=== PATIENT | female | born 1945 | race Caucasian/White ===

== ENCOUNTER 2018-11-04 15:19 | Emergency (ER) | payer MEDICARE, OTHER ==
[~2018-11-04] VITALS: Ht 157.5 cm; Wt 77.1 kg
[~2018-11-04 15:19] MED LIST: ACIDOPHILUS1 EAC4 PO; BACLOFEN10 MG PO; BACLOFEN20 MG PO; COLCHICINE0.6 MG PO; LASIX40 MG PO; LISINOPRIL10 MG PO; LOMOTIL TABLET1 EACH PO; METALAZONE; METFORMIN HCL500 MG PO; NITROFURANTOIN100 MG PO; NORCO 10MG-325MG1 EA PO; NORCO 7.5-3251 EACH PO; NOVOLOG100 UNIT/2 SC; REGLAN10 MG PO; ROBAXIN-750750 MG PO; SINGULAIR10 MG PO; SPIRONOLACTONE25 MG PO; TALADINE150 MG PO; TOPROL XL50 MG PO; ULORIC80 MG PO; ULTRAM 50MG50 MG PO; VITAMIN D3 PO; XANAX0.25 MG PO; Z METHOCARBAMOL; Z.0.ADIPEX-P37.5 MG; Z.0.BENADRYL25 MG PO; Z.0.DEMADEX20 MG; Z.0.LEVEMIR100 UNIT/ SC; Z.0.PREDNISONE5 MG; Z.0.REGLAN10 MG; Z.0.WARFARIN SODIUM2 PO; Z.0.XANAX0.25 MG; Z.0.XYZAL5 MG PO; Z.1.HYDROCODON-ACE1; ZOFRAN ODT4 MG PO; [UNRECOGNIZED DRUG - OTHER] PO
[2018-11-04] MEDS ORDERED: LIDOCAINE 1% W/EPINEPHRINE 20 ML VIAL ONE (17:31)
[2018-11-04] MEDS ORDERED: HYDROCODONE/APAP 7.5MG-325MG 1 EA TAB PO NR (17:45)
--- NOTE | 2018-11-04 18:05 | NUR ---
per md orders wrap wounds with xeroform and gauze and wrap; pt wounds wrapped according to orders
[2018-11-04 18:36] VITALS: BP 161/65
== END 2018-11-04 18:48 | disposition home or self-care (01) ==
LOC: ER 15:19
DX: S81.812A Laceration without foreign body, left lower leg, initial encounter (principal); W22.09XA Striking against other stationary object, initial encounter; Y92.238 Other place in hospital as the place of occurrence of the external cause; E11.9 Type 2 diabetes mellitus without complications; Z95.0 Presence of cardiac pacemaker
CPT/HCPCS: 99283

== ENCOUNTER 2019-01-20 22:00 | Emergency (ER) | payer MEDICARE, OTHER ==
[~2019-01-20] VITALS: Ht 157.5 cm; Wt 77.1 kg
--- NOTE | 2019-01-20 23:22 | Diagnostic Imaging Report ---
Exam: Left knee radiographs-3 views History: Pain, edema. Comparison: None. Findings: Diffuse osteopenia. No evidence of acute fracture or malalignment. Small suprapatellar joint effusion. Moderate medial and patellofemoral compartment predominant tricompartmental degenerative changes. Diffuse atherosclerotic vascular calcifications. Impression: No evidence of acute fracture or malalignment. Small suprapatellar joint effusion. Diffuse osteopenia. Moderate tricompartmental osteoarthritis. Signed by: Dr. Moe Huff MD on 01/20/2019 11:18 PM
[2019-01-21] MEDS ORDERED: TRAMADOL HCL 50 MG TAB PO ONE (00:15)
[2019-01-21 01:30] VITALS: BP 178/84
== END 2019-01-21 01:32 | disposition home or self-care (01) ==
LOC: ER 22:00
DX: M17.12 Unilateral primary osteoarthritis, left knee (principal); E11.9 Type 2 diabetes mellitus without complications; Z95.0 Presence of cardiac pacemaker
CPT/HCPCS: 99283

== ENCOUNTER 2019-01-21 16:53 | Inpatient (IN) | payer MEDICARE, OTHER ==
[~2019-01-21] VITALS: Ht 154.9 cm; Wt 59.0 kg
--- OUTSIDE RECORDS SUMMARY | 2019-01-21 17:04 | XMS REPORT ---
Author Author [facility] Address Unknown Phone Unavailable Care Team Providers Care High Man Name Role Phone Duncan SMALL Unavailable Unavailable Problems This patient has no known problems. Allergies, Adverse Reactions, Alerts This patient has no known allergies or adverse reactions. Medications This patient has no known medications. Results Test Description Test Time Test Comments Text Results Atomic Results Result Comments KNEE LEFT THREE VIEWS 2019-01-20 23:15:00 [facility] [address] [place] [address] Patient Name: CHAPINCITO GALVAN MR #: [id number] : 1945 Age/Sex: 73/F Req #: [id number] [facility] Physician: Ordered by: MARIANO SMALL MD Report #: [id number] Location: ER Room/Bed: Procedure: [id number] DX/KNEE LEFT THREE VIEWS Exam Date: 01/20/19 Exam Time: 2240 REPORT STATUS: Signed Exam: Left knee radiographs-3 views History: Pain, edema. Comparison: None. Findings: Diffuse osteopenia. No evidence of acute fracture or malalignment. Small suprapatellar joint effusion. Moderate medial and patellofemoral compartment predominant tricompartmental degenerative changes. Diffuse atherosclerotic vascular calcifications. Impression: No evidence of acute fracture or malalignment. Small suprapatellar joint effusion. Diffuse osteopenia. Moderate tricompartmental osteoarthritis. Signed by: Dr. Ivanna Sellers MD on 01/20/2019 11:18 PM Dictated By: IVANNA SELLERS MD 17 Transcribed By: IRWIN on 01/20/192317 COPY TO: MARIANO SMALL MD
--- NOTE | 2019-01-21 18:02 | NUR ---
Received patient via wheelchair to room 214. Accompanied by family member. AAOX3 to time, person, place. Respirations even and unlabored. Dressing to left knee clean, dry, and intact. Oriented to room. Instructed to use call light for assistance. Voiced understanding. Side rails upx2, call light within reach. Orders to be reviewed.
[2019-01-21] MEDS ORDERED: HYDROCODONE/APAP 7.5MG-325MG 1 EA TAB PO PRN (18:15)
[2019-01-21 18:29] VITALS: BP 136/61
--- NOTE | 2019-01-21 19:05 | NUR ---
Report given to oncoming nurse. Admission to be completed by oncoming nurse
[2019-01-21 19:13] LABS: BODY FLUID APPEARANCE CLOUDY; BODY FLUID COLOR RED; BODY FLUID TYPE SYNOVIAL
[2019-01-21 19:15] LABS: RBC,BODY FLUID 16409 cells/uL; WBC,BODY FLUID 59425 cells/uL
[2019-01-21 19:30] LABS: BASOPHILS # (AUTO) 0.1 (0.0-0.1); BASOPHILS % 0.2 % (0.0-1.0); EOSINOPHILS # (AUTO) 0.1 (0.0-0.4); EOSINOPHILS % 0.5 % (0.0-6.0); HEMOGLOBIN 12.9 g/dL (12.0-16.0); LYMPHOCYTES # (AUTO) 1.2 (1.0-3.2); LYMPHOCYTES % 5.6 % (18.0-39.1); MEAN CORPUSCULAR HEMOGLOBIN 28.7 pg (28-32); MEAN CORPUSCULAR HGB CONC 32.3 g/dL (31-35); MEAN CORPUSCULAR VOLUME 89.1 fL (81-99); MONOCYTES # (AUTO) 1.6 (0.2-0.8); MONOCYTES % 7.5 % (4.4-11.3); NEUTROPHILS # (AUTO) 17.7 (2.1-6.9); NEUTROPHILS % 85.4 % (38.7-80.0); PLATELET COUNT 335 x10e3/uL (140-360); RED BLOOD COUNT 4.49 x10e6/uL (3.6-5.1); RED CELL DISTRIBUTION WIDTH 13.2 % (11.7-14.4)
[2019-01-21 19:45] VITALS: BP 136/63
--- NOTE | 2019-01-21 19:45 | NUR ---
Patient received sitting up in bed. AAO x 4. Family at bedside. Admission history obtained. Initial physical assessment conducted. Patient had complaints of pain (4/10) to left knee. Will be given medication per eMar. Dressing to BLE clean, dry and intact. Patient oriented to room, call light, visiting hours and plan of care. Safety measures implemented. Patient instructed to call for assistance when needed. Call light within reach.
[2019-01-21 19:50] LABS: ALBUMIN 2.6 g/dL (3.5-5.0); ALBUMIN/GLOBULIN RATIO 0.6 (0.8-2.0); ANION GAP 17.7 mmol/L (8-16); CALCIUM 9.5 mg/dL (8.4-10.2); CREATININE, SERUM 0.98 mg/dL (0.57-1.11); POTASSIUM 3.7 mmol/L (3.5-5.1)
[2019-01-21 20:00] VITALS: BP 136/63
[2019-01-21 20:10] LABS: ERYTHROCYTE SEDIMENTATION RATE 71 mm/hr (0-20)
[2019-01-21] MEDS ORDERED: DEXTROSE 50% SYRINGE 50 ML IV PRN (20:45)
[2019-01-21 21:00] VITALS: BP 136/63
[2019-01-21] MEDS: INSULIN LISPRO 100 UNIT/1 ML 3ML VIAL SQ SCH (21:00)
[2019-01-21] MEDS: MONTELUKAST SODIUM 10 MG TAB PO SCH (21:15)
[2019-01-21] MEDS: ALPRAZOLAM 0.25 MG TAB PO SCH (21:15)
[2019-01-21] MEDS: VANCOMYCIN 1GM/NS 250 ML 250 ML IV SCH (21:15)
[2019-01-21 21:23] LABS: LYMPHOCYTES,BODY FLUID 7 %; MONO/MACROPHG,BODY FLUID 4 %; NEUTROPHILS,BODY FLUID 89 %
[2019-01-21] MEDS ORDERED: SODIUM CHLORIDE 0.9% 250ML 250 ML ONE (21:44)
[2019-01-21] MEDS: METOPROLOL SUCCINATE 50 MG TAB XL PO SCH (21:58)
[2019-01-21] MEDS ORDERED: ONDANSETRON HCL 4 MG ORAL DISINTEGRATING TAB PO PRN (23:00)
[2019-01-22] VITALS (8 sets, daily range): BP systolic 129–157; BP diastolic 63–72
--- NOTE | 2019-01-22 00:23 | NUR ---
Patient complained of pain to left knee (10/04). Dr. Fernando dugan. New order received for Morphine 2 mg Q4H PRN.
[2019-01-22] MEDS: MORPHINE SULFATE 2 MG/ML SYR 1ML IV PRN ×4 (00:48→16:32)
--- NOTE | 2019-01-22 07:00 | NUR ---
Walking rounds done. Shift report given to oncoming nurse.
--- NOTE | 2019-01-22 07:00 | NUR ---
BEDSIDE SHIFT REPORT RECEIVED FROM THE AUTOGLAZIER RN. EDUCATED PT ABOUT FALL PRECAUTIONS. CALL LIGHT WITH IN EASY REACH. INSTRUCTED PT TO USE CALL LIGHT FOR ALL THE NEEDS. PT VERBALIZED UNDERSTANDING. BED ALARM IS ON. BED IS LOW AND LOCKED. SIDE RAILS X2. PT DENIES NEEDS AT THIS TIME.
[2019-01-22] MEDS: INSULIN LISPRO 100 UNIT/1 ML 3ML VIAL SQ SCH ×4 (08:00→21:00)
[2019-01-22] MEDS: HYDROMORPHONE 1MG/1ML INJ IV PRN ×3 (08:52→20:20)
[2019-01-22] MEDS: DOCUSATE SODIUM 100 MG CAP PO SCH ×2 (08:59→20:25)
[2019-01-22] MEDS: COLCHICINE 0.6 MG TAB PO SCH ×2 (08:59→16:32)
[2019-01-22] MEDS: METFORMIN HCL 500 MG TAB PO SCH ×2 (08:59→16:32)
[2019-01-22] MEDS ORDERED: LEVOCETIRIZINE DIHYDROCHLORIDE 5 MG PO SCH (09:00)
[2019-01-22] MEDS ORDERED: HYDROCODONE/APAP 10MG-325MG TAB PO SCH ×2 (09:00)
[2019-01-22] MEDS: LORATADINE 10 MG TAB PO SCH (09:00)
--- NOTE | 2019-01-22 09:00 | NUR ---
JUSTIN [place] AT BEDSIDE FOR PROCEDURE.
[2019-01-22] MEDS: FEBUXOSTAT 80 MG TAB PO SCH ×2 (09:01→16:32)
[2019-01-22] MEDS: METOPROLOL SUCCINATE 50 MG TAB XL PO SCH (09:23)
[2019-01-22] MEDS: VANCOMYCIN 1GM/NS 250 ML 250 ML IV SCH ×2 (09:23→20:25)
--- NOTE | 2019-01-22 13:21 | Consultation ---
DATE OF CONSULTATION: The patient is in 214, comes in with left knee pain. HISTORY OF PRESENTING ILLNESS: This is a 73-year-old female with history of multiple medical history including diabetes, hypertension, hyperlipidemia, and gout, was in her usual state of health until the patient started to have a bout of knee pain, which is excruciating, got worse progressively, crescendoed, and the patient was seen by Orthopedics. Aspiration was done and was found to have a septic knee and the patient was admitted to the hospital for the same. PAST MEDICAL HISTORY: History of asthma, history of DVTs in the past, history of diabetes mellitus, history of hypertension, history of anxiety, history of allergies, and history of chronic pain. The patient also has a history of pacemaker placement. MEDICATIONS: She takes at home are acetaminophen 10/325 q.6 hours, alprazolam 0.25 mg at nighttime, colchicine 0.6 mg b.i.d., Uloric 80 mg daily, insulin NovoLog sliding scale, levocetirizine 5 mg daily, metformin 500 mg twice a day, metoprolol 50 mg daily, and montelukast 10 mg daily. PAST SURGICAL HISTORY: History of appendectomy, history of hysterectomy, bilateral salpingo-oophorectomy, bladder suspension, history of carpal tunnel release, history of bilateral cataract surgeries, history of cholecystectomy and history of pacemaker placement as mentioned above, history of colon resection, and lithotripsy for uric acid stones. SOCIAL HISTORY: Denies any EtOH. No drug use and no history of smoking at this time. She was a former smoker. FAMILY HISTORY: Positive for autoimmune disease in the family. ALLERGIES: ALLERGIC TO ADHESIVES, SULFA, CEPHALEXIN, CIPRO, AND APPARENTLY CLINDAMYCIN, WHICH WAS RECENT ALLERGY. REVIEW OF SYSTEMS: Negative for chest pain. No shortness of breath. No nausea, vomiting, or diarrhea. No constipation. No rectal bleeding. Positive for left knee pain. Positive for feeling of coldness in the left lower extremities. No diplopia. No blurry vision. No hyperesthesias. No paresthesias. Pain as mentioned above. PHYSICAL EXAMINATION: VITAL SIGNS: Temperature is 99.1, pulse of 94, blood pressure is 129/63, and pulse oximetry of 98%. She is on room air. HEENT: Normocephalic and atraumatic. CVS: S1 and S2 normal. Regular rate and rhythm. Pacemaker is seen on chest wall. ABDOMEN: Nontender and nondistended. EXTREMITIES: Left lower extremities, knee bandaged up, very tender, pain restricted movement. The patient has good pulses in the left lower extremity, however, the patient's leg is very cold. LABORATORY VALUES: Initial white count is 20,000, hemoglobin of 12.9, hematocrit of 40.9, neutrophil count is 85.4, and ESR is 71. Chemistry; sodium of 130, potassium of 3.7, and BUN of 13. ALT and AST normal, and total bilirubin is 1.5. Glucose of 267. MICROBIOLOGY: Gram stain on the wound is pending. The patient's additional examination shows left lower extremity wound, which has been cultured before and has been taken care of by Dr. Kearney. IMAGING STUDIES: None done on this hospitalization visit. ASSESSMENT: Septic knee. The patient is currently started on vancomycin 1 g q.12 hours. We will go ahead and continue with this. A PICC line will be placed. Medications have been restarted including metformin, alprazolam, montelukast, and morphine q.4 hours. I will go ahead and switch this to Dilaudid 1 mg q.6 hours to control the pain. Continue to monitor the patient's sedimentation rate and also white count. IV antibiotics as per ID. A PICC line will be placed. Further recommendation per clinical course. We will continue to monitor the patient. MD HARSHA Cerda/WILFRED /[id number]
--- NOTE | 2019-01-22 14:25 | Diagnostic Imaging Report ---
Examination: Single AP view of the chest. COMPARISON: Portable chest 05/04/2015 INDICATION: PICC line placement IMPRESSION: 1. Lines and Tubes: Interval placement of right-sided PICC line, with distal tip projecting in the mid SVC. Stable left upper chest multilead cardiac device. 2. Lungs are well-inflated. Stable 9 mm calcified granuloma in the right lower lung. Lungs are otherwise clear. No consolidation or effusion. 3. Cardiomediastinal silhouette is normal. Pulmonary vasculature is normal. 4. No acute bony abnormalities. Signed by: Dr. Denton Brown M.D. on 01/22/2019 2:21 PM
--- NOTE | 2019-01-22 15:00 | NUR ---
PAGED RADIOLOGY REGARDING PICC LINE USE. OKAY TO USE PER RADIOLOGY.
--- NOTE | 2019-01-22 17:00 | NUR ---
LAC 20 G IV REMOVED. TIP INTACT. DRESSING APPLIED. PT DENIED FURTHER NEED.S
--- NOTE | 2019-01-22 19:00 | NUR ---
BEDSIDE SHIFT REPORT GIVEN TO THE LIME KILN WORKER RN. PT DENIED FURTHER NEEDS
--- NOTE | 2019-01-22 19:15 | NUR ---
Patient received sitting up in bed. AAO x 4. Patient had no complaints of pain. Respirations even and non-labored. Bed locked and in lowest position . Bed rails x 2. Patient instructed to call for assistance when needed. Call light within reach.
--- NOTE | 2019-01-22 19:27 | NUR ---
Kayden Webster , P.A. for Dr. Capone called to find out how patient's left knee was doing. Nurse spoke to patient who indicated she was feeling much better. Eleanor (P.A.) stated surgical irrigation and debridement previously planned for patient's left knee will be held off for now.
[2019-01-22] MEDS: ALPRAZOLAM 0.25 MG TAB PO SCH (20:25)
[2019-01-22] MEDS: MONTELUKAST SODIUM 10 MG TAB PO SCH (20:25)
[2019-01-23] VITALS (8 sets, daily range): BP systolic 142–162; BP diastolic 65–70
[2019-01-23] MEDS: MORPHINE SULFATE 2 MG/ML SYR 1ML IV PRN ×4 (02:00→20:40)
[2019-01-23] MEDS: HYDROMORPHONE 1MG/1ML INJ IV PRN ×4 (05:31→22:40)
--- NOTE | 2019-01-23 07:00 | NUR ---
Patient resting comfortably. Shift report given to oncoming nurse about patient's status.
[2019-01-23] MEDS: METFORMIN HCL 500 MG TAB PO SCH ×2 (08:00→16:49)
[2019-01-23] MEDS: INSULIN LISPRO 100 UNIT/1 ML 3ML VIAL SQ SCH ×4 (08:00→21:10)
[2019-01-23] MEDS: DOCUSATE SODIUM 100 MG CAP PO SCH ×2 (08:00→21:48)
[2019-01-23] MEDS: LORATADINE 10 MG TAB PO SCH (08:00)
[2019-01-23] MEDS: COLCHICINE 0.6 MG TAB PO SCH ×2 (08:00→16:49)
[2019-01-23] MEDS: FEBUXOSTAT 80 MG TAB PO SCH ×2 (08:00→16:49)
[2019-01-23] MEDS: METOPROLOL SUCCINATE 50 MG TAB XL PO SCH (08:00)
--- NOTE | 2019-01-23 08:55 | Progress Note ---
DATE: SUBJECTIVE: A 73-year-old female, who came in with a septic knee of the left knee. The patient is currently feeling better, has been able to move her lower extremity better and the knee pain is considerably less. The patient has no chest pain. No shortness of breath. Slept well. No overnight symptoms noted. OBJECTIVE: VITAL SIGNS: Temperature is 98.8, T-max of 99.3 at 1644 hours yesterday, respirations 16, blood pressure is 162/70, and pulse oximetry of 95%. HEENT: Normocephalic, atraumatic. Pupils are reactive to light and accommodation. CVS: S1 and S2 normal. Regular rate and rhythm. ABDOMEN: Nontender, nondistended. EXTREMITIES: Left lower extremity, left knee in a bandage. Positive for good pulses. LABORATORY VALUES: White count is come down to 20,000. Glucoses have been running high. MICROBIOLOGY: Wound culture preliminary studies are rare gram-positive cocci in chains. Yesterday, the patient had a catheter placement. ASSESSMENT: 1. Ms. Granger with one septic knee. Continue with vancomycin 1 g q.12 hours. ID consult on board. The patient is also getting hydromorphone for pain control. 2. Diabetes mellitus. Continue with metformin and insulin sliding scale. 3. Hypertension. We will add amlodipine 5 mg to the regimen. Continue with current plan. PICC line in place. Further recommendation per clinical course. We will continue to monitor the patient's leukocytosis. We will monitor the CBC today. MD HARSHA Cerda/WILFRED /[id number]
--- NOTE | 2019-01-23 09:25 | NUR ---
RECEIVED CALL FROM LAB ON VANCOMYCIN TROUGH OF 16.5, REPORTED TO [facility] BEHAVIORAL HEALTH ASSISTANT FOR DEUCE, PER [place] URBINA TO GIVE MORNING DOSE OF VANCOMYCIN
[2019-01-23] MEDS: VANCOMYCIN 1GM/NS 250 ML 250 ML IV SCH ×2 (10:00→21:48)
--- NOTE | 2019-01-23 11:17 | NUR ---
WOUND CARE CONSULT FOR 73 YO FEMALE DIABETIC PATIENT HX OA RT KNEE, SEPTIC JOINT MARILEE 17 ON MODERATE PUP STATUS AND ALTERNATING PRESSURE SURFACE LABS: WBC-20.71,HGB-12.9, WOUND CULTURE AND BILATERAL LE ULTRASOUND DOPPLER PENDING SKIN ASSESSMENT COMPLETE PATIENT PRESENTS WITH LOWER EXTREMITY ULCERATIONS FOLLOWS : RIGHT LOWER LEG 3CMX1.5CMX.2CM RIGHT 5TH MET HEAD 2CMX1.5CM YELLOW SLOUGH COVERING LEFT OUTER LOWER LEG 3.5WBU6ZTN.2CM LEFT INNER LOWER LEG 2.4MKQ6CEP.2CM RECOMMENDATIONS: NURSING TO CONTINUE TO MAINTAIN MODERATE PUP STATUS INSURE FREQUENT TURNING RELATED TO PATIENT PREFERING TO STAY IN ONE POSITION R/T PAIN ASSOCIATED WITH MOVEMENT OF POST SURGICAL LEFT KNEE NURSING TO APPLY DAILY ACCUZYME OINTMENT TO SLOUGH COVERED ULCERATIONS TO RIGHT LOWER LEG AND 5TH MET HEAD ALSO TO LEFT POSTERIOR AND LATERAL LOWER LEG ULCERATIONS Addendum: 01/23/19 at 1128 by Michael Conrad RN Amended: Links added.
[2019-01-23] MEDS ORDERED: SODIUM CHLORIDE 0.9% 250ML 250 ML ONE (13:55)
[2019-01-23 14:43] LABS: BASOPHILS % 0.2 % (0.0-1.0); EOSINOPHILS % 0.1 % (0.0-6.0); HEMATOCRIT 35.3 % (34.2-44.1); HEMOGLOBIN 11.6 g/dL (12.0-16.0); LYMPHOCYTES # (AUTO) 1.5 (1.0-3.2); LYMPHOCYTES % 6.6 % (18.0-39.1); MEAN CORPUSCULAR HEMOGLOBIN 28.9 pg (28-32); MEAN CORPUSCULAR HGB CONC 32.9 g/dL (31-35); MEAN CORPUSCULAR VOLUME 87.8 fL (81-99); MONOCYTES # (AUTO) 1.6 (0.2-0.8); MONOCYTES % 7.2 % (4.4-11.3); NEUTROPHILS # (AUTO) 18.9 (2.1-6.9); PLATELET COUNT 341 x10e3/uL (140-360); RED BLOOD COUNT 4.02 x10e6/uL (3.6-5.1); RED CELL DISTRIBUTION WIDTH 13.2 % (11.7-14.4)
[2019-01-23 15:18] LABS: BAND NEUTROPHILS % (MANUAL) 1 %; LYMPHOCYTES % (MANUAL) 11 % (19-48); MONOCYTES % (MANUAL) 9 % (3.4-9.0); NEUTROPHILS % (MANUAL) 79 % (40-74); PLATELET ESTIMATE ADEQUATE; PLATELET MORPHOLOGY COMMENT NORMAL; RBC MORPHOLOGY COMMENT NORMAL
[2019-01-23] MEDS: MONTELUKAST SODIUM 10 MG TAB PO SCH (21:48)
[2019-01-23] MEDS: ALPRAZOLAM 0.25 MG TAB PO SCH (21:48)
[2019-01-24] VITALS (9 sets, daily range): BP systolic 136–186; BP diastolic 61–83
[2019-01-24] MEDS: MORPHINE SULFATE 2 MG/ML SYR 1ML IV PRN ×4 (04:22→21:33)
--- NOTE | 2019-01-24 07:00 | NUR ---
Walking rounds done. Patient denies pain. Report given to oncoming nurse.
[2019-01-24] MEDS: LORATADINE 10 MG TAB PO SCH (08:00)
[2019-01-24] MEDS: VANCOMYCIN 1GM/NS 250 ML 250 ML IV SCH ×2 (08:00→21:53)
[2019-01-24] MEDS: COLCHICINE 0.6 MG TAB PO SCH ×2 (08:00→16:40)
[2019-01-24] MEDS: METOPROLOL SUCCINATE 50 MG TAB XL PO SCH (08:00)
[2019-01-24] MEDS: METFORMIN HCL 500 MG TAB PO SCH ×2 (08:00→16:40)
[2019-01-24] MEDS: DOCUSATE SODIUM 100 MG CAP PO SCH ×2 (08:00→21:53)
[2019-01-24] MEDS: INSULIN LISPRO 100 UNIT/1 ML 3ML VIAL SQ SCH ×4 (08:00→21:54)
[2019-01-24] MEDS: FEBUXOSTAT 80 MG TAB PO SCH ×2 (08:00→16:40)
[2019-01-24] MEDS: HYDROMORPHONE 1MG/1ML INJ IV PRN ×2 (08:00→13:48)
[2019-01-24 08:41] LABS: ALBUMIN 1.9 g/dL (3.5-5.0); ALBUMIN/GLOBULIN RATIO 0.5 (0.8-2.0); ANION GAP 16.6 mmol/L (8-16); CALCIUM 8.5 mg/dL (8.4-10.2); CREATININE, SERUM 1.01 mg/dL (0.57-1.11); MAGNESIUM 1.2 MG/DL (1.3-2.1); POTASSIUM 4.6 mmol/L (3.5-5.1)
[2019-01-24] MEDS: COLLAGENASE OINTMENT 30 GM TUBE TP SCH (09:00)
[2019-01-24 09:15] LABS: BASOPHILS % 0.1 % (0.0-1.0); EOSINOPHILS % 0.2 % (0.0-6.0); HEMATOCRIT 30.8 % (34.2-44.1); HEMOGLOBIN 10.1 g/dL (12.0-16.0); LYMPHOCYTES # (AUTO) 1.2 (1.0-3.2); LYMPHOCYTES % 7.7 % (18.0-39.1); MEAN CORPUSCULAR HGB CONC 32.8 g/dL (31-35); MEAN CORPUSCULAR VOLUME 88.5 fL (81-99); MONOCYTES # (AUTO) 0.8 (0.2-0.8); MONOCYTES % 5.4 % (4.4-11.3); NEUTROPHILS # (AUTO) 12.8 (2.1-6.9); NEUTROPHILS % 85.7 % (38.7-80.0); PLATELET COUNT 271 x10e3/uL (140-360); RED BLOOD COUNT 3.48 x10e6/uL (3.6-5.1); RED CELL DISTRIBUTION WIDTH 13.2 % (11.7-14.4)
--- NOTE | 2019-01-24 18:42 | NUR ---
Nutrition Screen Note RD Recommendation for Physician: Continue diet as ordered Plan of Care: RD following, monitoring for tolerance and adequacy Nutrition reason for involvement: Nutrition Risk Trigger - MST Primary Diagnose(s): Septic joint Knee, OA PMH: T2DM, HTN Ht: 61in Wt:130lb BMI:24.6 kg/m2 IBW:105lb +/-10% RD Assessment: (01/24/2019) Chart reviewed. Labs and meds reviewed. Initial encounter with patient. Pt with a good PO intake. Pt denies any difficulty chewing or swallowing nor has any N,V,D. Pt denies any significant wt changes. No Known food allergies Current Diet:1800 ADA Malnutrition Evaluation (01/24/2019) The patient does not meet criteria for a specified degree of malnutrition at this time. Will re-evaluate at follow-up as appropriate. Diet Education Needs Assessment: Diet education not indicated. Nutrition Care Level: Low Signed: Ed English RD, LD, [facility]
[2019-01-24] MEDS: ALPRAZOLAM 0.25 MG TAB PO SCH (21:53)
[2019-01-24] MEDS: MONTELUKAST SODIUM 10 MG TAB PO SCH (21:53)
[2019-01-25] VITALS (9 sets, daily range): BP systolic 140–168; BP diastolic 63–69
[2019-01-25] MEDS: HYDROMORPHONE 1MG/1ML INJ IV PRN ×5 (01:22→21:36)
[2019-01-25] MEDS: MORPHINE SULFATE 2 MG/ML SYR 1ML IV PRN ×5 (04:48→21:36)
[2019-01-25] MEDS: DOCUSATE SODIUM 100 MG CAP PO SCH ×2 (08:33→21:05)
[2019-01-25] MEDS: FEBUXOSTAT 80 MG TAB PO SCH ×2 (08:33→15:53)
[2019-01-25] MEDS: INSULIN LISPRO 100 UNIT/1 ML 3ML VIAL SQ SCH ×4 (08:33→21:05)
[2019-01-25] MEDS: METFORMIN HCL 500 MG TAB PO SCH ×2 (08:33→15:52)
[2019-01-25] MEDS: LORATADINE 10 MG TAB PO SCH (08:33)
[2019-01-25] MEDS: COLCHICINE 0.6 MG TAB PO SCH ×2 (08:33→15:52)
[2019-01-25] MEDS: COLLAGENASE OINTMENT 30 GM TUBE TP SCH (08:33)
[2019-01-25] MEDS: METOPROLOL SUCCINATE 50 MG TAB XL PO SCH (08:33)
--- NOTE | 2019-01-25 08:40 | NUR ---
DRESSING TO ALL LOWER LEG WOUND CHANGED PER WOUND CARE ORDERS PT TOLERATED WELL
[2019-01-25 08:47] LABS: BASOPHILS % 0.1 % (0.0-1.0); EOSINOPHILS # (AUTO) 0.1 (0.0-0.4); EOSINOPHILS % 0.5 % (0.0-6.0); HEMATOCRIT 33.7 % (34.2-44.1); LYMPHOCYTES # (AUTO) 1.5 (1.0-3.2); LYMPHOCYTES % 10.5 % (18.0-39.1); MEAN CORPUSCULAR HEMOGLOBIN 28.6 pg (28-32); MEAN CORPUSCULAR HGB CONC 32.6 g/dL (31-35); MEAN CORPUSCULAR VOLUME 87.5 fL (81-99); MONOCYTES # (AUTO) 1.3 (0.2-0.8); MONOCYTES % 9.3 % (4.4-11.3); NEUTROPHILS # (AUTO) 11.3 (2.1-6.9); NEUTROPHILS % 78.6 % (38.7-80.0); PLATELET COUNT 296 x10e3/uL (140-360); RED BLOOD COUNT 3.85 x10e6/uL (3.6-5.1); RED CELL DISTRIBUTION WIDTH 13.2 % (11.7-14.4)
--- NOTE | 2019-01-25 09:08 | NUR ---
SPOKE WITH AL REGARDING ELEVATED TROUGH ORDERS TO DC GIVEN ORDERS FOR VANC RANDOM FOR TOMORROW ORDERED
[2019-01-25 09:15] LABS: ANION GAP 14.2 mmol/L (8-16); CALCIUM 9.1 mg/dL (8.4-10.2); CREATININE, SERUM 1.05 mg/dL (0.57-1.11); POTASSIUM 4.2 mmol/L (3.5-5.1)
--- NOTE | 2019-01-25 11:59 | Progress Note ---
DATE: SUBJECTIVE: The patient did well overnight. No new complaints. OBJECTIVE: VITAL SIGNS: Temperature 97.2, pulse 82, blood pressure 151/64, and saturations 95% on room air. GENERAL: No apparent distress. CARDIOVASCULAR: Regular rate and rhythm. LUNGS: Clear to auscultation bilaterally. ABDOMEN: Good bowel sounds. Soft and nontender. EXTREMITIES: No clubbing or cyanosis. NEUROLOGIC: Nonfocal. Moves all extremities x4. ASSESSMENT AND PLAN: 1. Septic left knee joint. Continue with current antibiotic care per Infectious Disease and Orthopedics. 2. Diabetes. Continue with current care monitoring. 3. Hypertension. Continue with current care monitoring. 4. Anemia. Continue to monitor. 5. Leukocytosis. Continue to monitor. Please see hospital chart for full details. MD NAHUN Good/WILFRED /[id number]
--- NOTE | 2019-01-25 19:22 | NUR ---
RECEIVED REPORT FROM PREVIOUS NURSE. CALL LIGHT WITHIN REACH. PATIENT IN BED.
[2019-01-25] MEDS: MONTELUKAST SODIUM 10 MG TAB PO SCH (21:05)
[2019-01-25] MEDS: ALPRAZOLAM 0.25 MG TAB PO SCH (21:05)
[2019-01-26] VITALS (8 sets, daily range): BP systolic 136–177; BP diastolic 65–74
[2019-01-26] MEDS: HYDROMORPHONE 1MG/1ML INJ IV PRN ×5 (04:48→21:31)
--- NOTE | 2019-01-26 05:04 | Operative Report ---
DATE OF PROCEDURE: 01/22/2019 SURGEON: Jose F Capone MD INDICATIONS: The patient is a 73-year-old female, who presented to my office yesterday with a swollen left knee. She has underlying severe arthritis. There was concern for a septic joint and we elected to aspirate the knee in the office. I removed roughly 80 mL of florencia pus in the office. She was given the findings. She was admitted to [facility] for IV antibiotic treatment. She has multiple medical issues and is a high risk for anesthesia. Given her multiple medical issues, high anesthesias risks, and her underlying severe osteoarthritis, we recommended a bedside serial aspiration and irrigation rather than a left knee arthroscopy with irrigation and washout. The risks and benefits were explained. The reasonings behind this option over the left knee arthroscopy was explained. The patient states she understands and wishes to proceed. PROCEDURE IN DETAIL: The left knee was prepped in a sterile manner. The site was anesthetized with 4 mL of lidocaine 2%. Using an 18-gauge needle, I aspirated roughly 60 mL of florencia pus. I then did a serial injection and irrigation with a total of 100 mL of sterile saline. Each serial injection and irrigation revealed clearing of the fluid. The last syringe was a cloudy, reddish fluid. The patient tolerated the procedure well. A sterile gauze dressing and Mehdi compression wrap was applied to the left knee. At the end of the procedure, all needle counts were correct. Dictated by Cullen Webster PA-C Jose F Capone MD [facility]L /[id number]
--- NOTE | 2019-01-26 07:12 | NUR ---
GAVE REPORT TO ONCOMING NURSE. CALL LIGHT WITHIN REACH. PATIENT IN BED.
[2019-01-26] MEDS: COLCHICINE 0.6 MG TAB PO SCH ×2 (08:58→16:57)
[2019-01-26] MEDS: METOPROLOL SUCCINATE 50 MG TAB XL PO SCH (08:58)
[2019-01-26] MEDS: LORATADINE 10 MG TAB PO SCH (08:58)
[2019-01-26] MEDS: DOCUSATE SODIUM 100 MG CAP PO SCH ×2 (08:58→19:58)
[2019-01-26] MEDS: METFORMIN HCL 500 MG TAB PO SCH ×2 (08:58→16:57)
[2019-01-26] MEDS: FEBUXOSTAT 80 MG TAB PO SCH ×2 (08:58→16:57)
[2019-01-26] MEDS: COLLAGENASE OINTMENT 30 GM TUBE TP SCH (09:03)
[2019-01-26] MEDS: INSULIN LISPRO 100 UNIT/1 ML 3ML VIAL SQ SCH ×4 (09:03→20:48)
[2019-01-26] MEDS ORDERED: VANCOMYCIN 1GM/NS 250 ML 250 ML IV SCH (12:30)
--- NOTE | 2019-01-26 12:55 | NUR ---
WOUND CARE CONSULT F/U FOR 73 YO FEMALE DIABETIC PATIENT HX OA RT KNEE, SEPTIC JOINT MARILEE 17 ON MODERATE PUP STATUS AND ALTERNATING PRESSURE SURFACE LABS: WBC-20.71,HGB-12.9, SKIN ASSESSMENT COMPLETE PATIENT PRESENTS WITH LOWER EXTREMITY ULCERATIONS FOLLOWS : RIGHT LOWER LEG 3CMX1.5CMX.2CM RIGHT 5TH MET HEAD 2CMX1.5CM LEFT OUTER LOWER LEG 3.2FIN0ETO.2CM YELLOW SLOUGH COVERING ON WOUNDS SHOWING DECREASED AMOUNTS THAN INITAL ASSESSMENT SIZES REMAIN CONSTANT Addendum: 01/26/19 at 1258 by Michael Conrad RN Amended: Links added.
--- NOTE | 2019-01-26 13:00 | NUR ---
LEILA Dasilva informed CM that Dr. Kearney spoke to her and told her he was going to run IV abx thru his office. Received order for LTAC this morning from Dr. Florence. Spoke with pt at bedside regarding dc plan. Pt stated that she does not know what she wants and wants CM or MD to make the decision for her. CM informed her that she has the right to make decisions in her care and that we can give her options and she needs to decide which is best for her and her situation. CM explained the difference between going home with IV abx and going to a LTAC facility. Pt states she needs help with her meals and needs help getting out of bed, and does not think her will be able to assist her. She states she thinks at this point, LTAC would be more appropriate, but would like to speak to her about it first. States she will call her and call CM regarding decision. CM left business card for pt at bedside.
--- NOTE | 2019-01-26 14:00 | NUR ---
Received call from pt who stated that she just spoke with her daughter and . They all agree on LTAC. CM to pt's bedside and obtained choice for [facility]. Signed choice letter placed in front of chart. Copy to pt. Raven Montejo with [facility] was notified of referral.
[2019-01-26] MEDS: MORPHINE SULFATE 2 MG/ML SYR 1ML IV PRN (15:45)
--- NOTE | 2019-01-26 16:00 | NUR ---
Pt participated in PT this afternoon. [facility] approval pending. Medicated for pain this evening.
--- NOTE | 2019-01-26 17:28 | NUR ---
MOT initiated and placed with pt's packet at nurse's station. Discharge disposition once approved: [facility] [address] [place] [address]
--- NOTE | 2019-01-26 19:20 | NUR ---
Patient visited in room during nursing rounds. Patient alert and oriented x3. No distress noted. Pt had s/p aspiration of fluid on her left knee on 01/24/19 and site covered with large band-aid (C/D/I). Several gauze dressings covering scratches noted below left knee (cardenas and calf areas). Pt up ad fredi with assistance using walker and use of bedside commode prn. Will manage pain on left knee with pain medication (Dilaudid IV) as needed. Call escobar within reach.
[2019-01-26] MEDS: MONTELUKAST SODIUM 10 MG TAB PO SCH (20:48)
[2019-01-26] MEDS: ALPRAZOLAM 0.25 MG TAB PO SCH (20:48)
[2019-01-27] MEDS: HYDROMORPHONE 1MG/1ML INJ IV PRN ×3 (01:33→11:07)
[2019-01-27 05:14] VITALS: BP 179/77
--- NOTE | 2019-01-27 07:09 | NUR ---
pt alert resp even and unlabored at this time no distress noted, pt able to make needs known, pt has no complaint of pain when asked, call light in reach.
[2019-01-27] MEDS: INSULIN LISPRO 100 UNIT/1 ML 3ML VIAL SQ SCH (07:30)
[2019-01-27 07:35] VITALS: BP 174/74
[2019-01-27 08:47] VITALS: BP 174/74
--- NOTE | 2019-01-27 09:25 | NUR ---
LONG-TERM ACUTE CARE DISCHARGE INFORMATION PATIENT HAS BEEN ACCEPTED TO: [facility] [address] [place] [address] ACCEPTING TEACHING SUPERVISOR: Yary Moore, order entry administrator ACCEPTING MD: Dr. Yañez ROOM: 301 NURSE CALL REPORT TO: [phone] THE FOLLOWING DOCUMENTS MUST ACCOMPANY PATIENT FOR TRANSFER: copy of chart, transfer MAR COPIED CHART: Chitra, community arts centre manager MOT INFO RECEIVED FROM: Raven Montejo PHYSICIANS ORDER/RECONCILED MED LIST: to be obtained by bedside nurse [id number] DNR: n/a MOT completed and placed with pt's packet. RICEKY Hyatt was informed of MOT.
[2019-01-27] MEDS: METFORMIN HCL 500 MG TAB PO SCH (09:27)
[2019-01-27] MEDS: COLCHICINE 0.6 MG TAB PO SCH (09:28)
[2019-01-27] MEDS: DOCUSATE SODIUM 100 MG CAP PO SCH (09:28)
[2019-01-27] MEDS: LORATADINE 10 MG TAB PO SCH (09:28)
[2019-01-27] MEDS: FEBUXOSTAT 80 MG TAB PO SCH (09:29)
[2019-01-27] MEDS: METOPROLOL SUCCINATE 50 MG TAB XL PO SCH (09:29)
--- NOTE | 2019-01-27 10:07 | NUR ---
report given to Caden at [facility].
[2019-01-27 11:55] VITALS: BP 182/75
== END 2019-01-27 12:17 | DRG 549 ==
LOC: MED/SURG2 16:53
PROVIDERS: ADMIT Specialist; ATTEND Specialist
PROC: 0S9D4ZZ Drainage of Left Knee Joint, Percutaneous Endoscopic Approach (ICD-10-PCS; principal; 2019-01-21)
PROC: 02HV33Z Insertion of Infusion Device into Superior Vena Cava, Percutaneous Approach (ICD-10-PCS; 2019-01-22)
DX: M00.262 Other streptococcal arthritis, left knee (principal); L97.929 Non-pressure chronic ulcer of unspecified part of left lower leg with unspecified severity; L97.919 Non-pressure chronic ulcer of unspecified part of right lower leg with unspecified severity; M17.12 Unilateral primary osteoarthritis, left knee; I10 Essential (primary) hypertension; D64.9 Anemia, unspecified; E11.622 Type 2 diabetes mellitus with other skin ulcer; Z79.4 Long term (current) use of insulin; E78.5 Hyperlipidemia, unspecified; Z86.718 Personal history of other venous thrombosis and embolism; Z79.01 Long term (current) use of anticoagulants; Z95.0 Presence of cardiac pacemaker
CPT/HCPCS: 36415; 36569; 71045; 80048; 80053; 80202; 82948; 83735; 85025; 85651; 86140; 87071; 87205; 89051; 93925; 96372; 97139; 97602; J1170; J2270; J3370; J7050; Q0162

== ENCOUNTER 2019-03-31 11:33 | Inpatient (IN) | payer MEDICARE, OTHER ==
[~2019-03-31] VITALS: Ht 154.9 cm; Wt 59.9 kg
[2019-03-31] MEDS ORDERED: SODIUM CHLORIDE 0.9% 1000ML 1,000 ML IV STA (11:45)
[2019-03-31] MEDS ORDERED: INSULIN REGULAR, HUMAN 100 UNIT/1 ML 3ML VIAL IV NR (12:15)
[2019-03-31] MEDS ORDERED: ACETAMINOPHEN 650 MG SUPP PR ONE ×2 (12:36→13:30)
[2019-03-31 12:39] LABS: BASOPHILS # (AUTO) 0.1 (0.0-0.1); BASOPHILS % 0.5 % (0.0-1.0); EOSINOPHILS % 0.1 % (0.0-6.0); HEMATOCRIT 28.3 % (34.2-44.1); HEMOGLOBIN 9.2 g/dL (12.0-16.0); LYMPHOCYTES # (AUTO) 1.8 (1.0-3.2); LYMPHOCYTES % 12.1 % (18.0-39.1); MEAN CORPUSCULAR HEMOGLOBIN 29.6 pg (28-32); MEAN CORPUSCULAR HGB CONC 32.5 g/dL (31-35); MONOCYTES # (AUTO) 1.4 (0.2-0.8); MONOCYTES % 8.9 % (4.4-11.3); NEUTROPHILS # (AUTO) 11.4 (2.1-6.9); NEUTROPHILS % 75.6 % (38.7-80.0); PLATELET COUNT 420 x10e3/uL (140-360); RED BLOOD COUNT 3.11 x10e6/uL (3.6-5.1); RED CELL DISTRIBUTION WIDTH 15.7 % (11.7-14.4)
[2019-03-31] MEDS ORDERED: MEROPENEM 1GM 100 ML IV NR (12:45)
[2019-03-31 12:47] LABS: ABG HCO3 24 mmol/L (23-28); ABG PCO2 29 mmHg (41-51); ABG PH 7.52 (7.31-7.41); ABG PO2 65 mmHg (80-105)
[2019-03-31 12:53] LABS: INR 1.27; PROTHROMBIN TIME 16.2 seconds (11.9-14.5)
[2019-03-31 12:54] LABS: PARTIAL THROMBOPLASTIN TIME 36.3 seconds (23.8-35.5)
[2019-03-31 12:57] LABS: STREPTOCOCCUS GRP A ANTIGEN NEGATIVE (NEGATIVE)
[2019-03-31 13:00] LABS: ALANINE AMINOTRANSFERASE 12 IU/L (0-55); ALBUMIN 1.5 g/dL (3.5-5.0); ALBUMIN/GLOBULIN RATIO 0.3 (0.8-2.0); ALKALINE PHOSPHATASE 104 IU/L (40-150); ANION GAP 17.9 mmol/L (8-16); BLOOD UREA NITROGEN 28 mg/dL (7-26); BUN/CREATININE RATIO 20 (6-25); CALCIUM 9.4 mg/dL (8.4-10.2); CARBON DIOXIDE 21 mmol/L (22-29); CHLORIDE 95 mmol/L (98-107); EST GLOMERULAR FILTRATION RATE 37 ML/MIN (60-); LIPASE 63 U/L (8-78); POTASSIUM 3.9 mmol/L (3.5-5.1); SODIUM 130 mmol/L (136-145)
[2019-03-31 13:01] LABS: CLARITY,URINE SL CLOUDY (CLEAR); COLOR,URINE YELLOW (YELLOW); LEUKOCYTE ESTERASE ,URINE MODERATE (NEGATIVE)
[2019-03-31 13:02] LABS: BILIRUBIN,URINE NEGATIVE (NEGATIVE); KETONES,URINE NEGATIVE (NEGATIVE); NITRITE,URINE NEGATIVE (NEGATIVE); PROTEIN,URINE DIPSTICK TRACE (NEGATIVE); URINE UROBILINOGEN 0.2 mg/dL (0.2 - 1)
[2019-03-31 13:03] LABS: GLUCOSE 557 mg/dL (74-118)
[2019-03-31 13:06] LABS: INFLUENZAE A&B ANTIGEN (RAPID) NEGATIVE (NEGATIVE)
[2019-03-31 13:14] LABS: WBC,URINE (MAN) >50 /HPF (0-5)
[2019-03-31 13:15] LABS: BACTERIA,URINE MANY /HPF; EPITHELIAL CELLS,URINE FEW /LPF; RBC,URINE 0-5 /HPF (0-5)
[2019-03-31] MEDS: ONDANSETRON HCL INJ 2MG/ML 2ML 2 MG/ML VIAL IV PRN ×2 (13:21→20:10)
[2019-03-31 13:24] LABS: CREATINE KINASE < 7 IU/L (29-168); MAGNESIUM 1.1 MG/DL (1.3-2.1)
[2019-03-31 13:25] LABS: B-TYPE NATRIURETIC PEPTIDE2 231.3 pg/mL (0-100)
--- NOTE | 2019-03-31 13:46 | Diagnostic Imaging Report ---
EXAMINATION: CHEST SINGLE (NOT PORTABLE) INDICATION: Shortness of breath COMPARISON: Chest radiograph 03/13/2019 FINDINGS: LINES/TUBES:Left chest AICD. EKG leads overlie the chest. LUNGS:The lungs are moderately inflated. No focal consolidation or pulmonary edema. Unchanged right basilar calcified granuloma. PLEURA:No pleural effusion or pneumothorax. MEDIASTINUM:The cardiomediastinal silhouette appears unchanged in size and shape. Atherosclerotic calcifications of the thoracic aorta. BONES/SOFT TISSUES:No acute osseous injury. ABDOMEN:No free air under the diaphragm. Status post cholecystectomy. IMPRESSION: No focal pneumonia or pulmonary edema. Unchanged right lung base calcified granuloma. Signed by: Doris Zarate MD on 03/31/2019 1:43 PM
--- NOTE | 2019-03-31 13:49 | Diagnostic Imaging Report ---
Exam: KUB - 2 views Indication: Abdominal Pain Comparison: CT abdomen and pelvis 03/09/2019 Findings: Loops of distended air-filled colon, likely redundant sigmoid colon, measure up to 7.2 cm maximum diameter. No air-fluid levels. No free air. Status post cholecystectomy. Phlebolith in the pelvis. No acute osseous injury. Impression: Air-filled distended colon measuring up to 7.2 cm. No definite obstructive bowel gas pattern. No free air. Signed by: Doris Zarate MD on 03/31/2019 1:46 PM
[2019-03-31] MEDS: SODIUM CHLORIDE 0.9% 1000ML 1,000 ML IV SCH ×2 (14:30→17:29)
[2019-03-31] MEDS ORDERED: MAGNESIUM SULFATE 2GM/50ML 50 ML IV ONE (14:30)
[2019-03-31] MEDS ORDERED: DEXTROSE 50% SYRINGE 50 ML IV PRN (15:30)
[2019-03-31] MEDS: INSULIN REGULAR, HUMAN 100 UNIT/1 ML 3ML VIAL SQ SCH ×2 (16:30→20:12)
[2019-03-31 17:00] VITALS: BP 142/64
[2019-03-31 17:35] VITALS: BP 142/64
--- NOTE | 2019-03-31 17:50 | NUR ---
PATIENT ARRIVED ON THE UNIT AT 1622 PER STRETCHER FROM THE ER. PATIENT IS LETHARGIC BUT IS AWAKE AND IN STABLE CONDITION WITH NO S/S OF RESPIRATORY DISTRESS. 02 APPLIED AT 3L NC. NO PAIN INDICATED UNLESS THE PATIENT IS TURNED. UNSTAGEABLE WOUND NOTED TO POSTERIOR SACRUM AREA. REDNESS NOTED UNDER RIGHT BREAST. LEFT FOREARM: BRUISES NOTED AND THERE IS A DRY SCAB NOTED CLOSE TO HER ELBOW. RIGHT FOREARM: BRUISES NOTED, AND THERE IS A DRY SCAB NOTED CLOSE TO THE WRIST AREA. RIGHT LOWER LEG SCAB NOTED -OPEN TO AIR. LEFT LOWER LEG: TWO DRY SCABS NOTED TO AND SKIN TEAR NOTED TO LATERAL PART OF THE LOWER LEG- ALL OPEN TO AIR. DRY SCAB NOTED TO LEFT LATERAL ANKLE AREA WITH SURROUNDING BLANCHABLE REDNESS NOTED. BILATERAL HEELS HAVE BLANCHABLE REDNESS. PEG TUBE NOTED TO LEFT ABD SIDE AND IS CLAMPED. ALLEVYN APPLIED TO SACRUM AREA WELL BILATERAL FEET/ANKLE. HEEL PROTECTORS APPLIED. PATIENT TURNED TO HER SIDE WITH CUSHION. AIR PUMP APPLIED. BED ALARM APPLIED WITH 3 RAILS UP. IV FLUIDS INFUSING. TELEMETRY APPLIED. DAUGHTER PRESENT IN ROOM. CALL LIGHT IS WITHIN REACH, PATIENT/PATIENT'S DAUGHTER HAVE BEEN INSTRUCTED TO CALL FOR ASSISTANCE NEEDED.
--- NOTE | 2019-03-31 18:01 | NUR ---
RECEIVED PAIN MEDICATION ORDER AND ORDER TO CONTIONUE IV MERREM Q12H FROM DR. DONOHUE.
--- NOTE | 2019-03-31 18:14 | NUR ---
PATIENTS DAUGHTER/POA, HETAL, WANTS TO SPEAK TO DR. DONOHUE TOMORROW MORNING ABOUT THE PATIENTS STATUS AND CARE. POA WANTS TO DISCUSS DIET, VACCINES, AND MEDICATIONS WITH DR. DONOHUE.
--- NOTE | 2019-03-31 19:09 | NUR ---
PATIENT IN STABLE CONDITION WITH NO S/S OF RESPIRATORY DISTRESS. NO PAIN VOICED. 02 APPLIED AT 3L NC. TELEMETRY APPLIED. BED ALARM APPLIED; 3 RAILS RAISED. ALLEVYN APPLIED TO SACRUM AND HEELS. HEEL PROTECTORS APPLIED. PATIENT TURNED TO HER LEFT SIDE. AIR PUMP APPLIED. BED ALARM APPLIED. CALL LIGHT IS WITHIN REACH, PATIENT INSTRUCTED TO CALL FOR ASSISTANCE NEEDED. BEDSIDE SHIFT REPORT GIVEN TO ONCOMING NURSE.
--- NOTE | 2019-03-31 19:15 | NUR ---
patient received lying quietly in bed. vss. no signs of pain noted. hob elevated 30 degrees. 02/3l/nc in use. ivf continue to infuse without difficulty. patient has an allergy to cephalexin and has cefepime ordered. this order was clarified with and is ok to give per . pm assessment complete.
[2019-03-31 20:00] VITALS: BP 174/71
[2019-03-31] MEDS: HYDROMORPHONE 1MG/1ML INJ IV PRN (20:10)
[2019-03-31] MEDS: CEFEPIME 1GM/NS 0.9% 50 ML 50 ML IV SCH (20:10)
[2019-03-31 21:08] LABS: HYPOCHROMASIA SLIGHT; LYMPHOCYTES % (MANUAL) 7 % (19-48); MONOCYTES % (MANUAL) 1 % (3.4-9.0); MYELOCYTES % (MANUAL) 1 % (0-0); NEUTROPHILS % (MANUAL) 90 % (40-74); PLATELET ESTIMATE ADEQUATE; PLATELET MORPHOLOGY COMMENT NORMAL; POIKILOCYTOSIS SLIGHT
[2019-03-31 21:09] LABS: RBC MORPHOLOGY COMMENT NORMAL
[2019-03-31 21:19] VITALS: BP 174/71
[2019-03-31] MEDS: METRONIDAZOLE 500MG/NS 100ML 100 ML IV SCH (21:32)
[2019-04-01] VITALS (8 sets, daily range): BP systolic 95–168; BP diastolic 46–71
[2019-04-01] MEDS ORDERED: ACETAMINOPHEN 1000 MG/100 ML IV PRN (00:30)
--- NOTE | 2019-04-01 00:30 | NUR ---
temp 102.0 call placed to re: elevated temp. orders noted.
[2019-04-01] MEDS ORDERED: ACETAMINOPHEN 650 MG SUPP PR PRN (01:15)
--- NOTE | 2019-04-01 01:15 | NUR ---
patient medicated with iv tylenol 1000mg iv at this time.
--- NOTE | 2019-04-01 01:30 | Consultation ---
DATE OF CONSULTATION: 03/31/2019 REASON FOR CONSULTATION: Sepsis, pneumonia aspiration, healthcare associated. HISTORY OF PRESENT ILLNESS: This is a patient who is well known to me from previous admission. She is a 73-year-old white female, who has multiple admissions recently. Her problem started back in February when she started to have infection in her knee. She does have a history of osteoarthritis. The patient who have gout, osteoarthritis had infection of her knee back in January. Since then, she has been in and out of the hospital, multiple admissions. She has been at nursing homes. The patient easily gets septic with acute dehydration, acute kidney injury, and then easily can get aspiration pneumonia. The patient was at the nursing skilled care facility when she became lethargic, confused. In the emergency room, she was hyperglycemic, septic, febrile, started on antibiotic. PAST MEDICAL HISTORY: The patient has history of osteoarthritis, asthma, diabetes mellitus with neuropathy, diverticulitis, gout, kidney stone. PAST SURGICAL HISTORY: Appendectomy, bilateral salpingo-oophorectomy, bilateral ureterolithotomy, bladder suspension, left carpal tunnel syndrome release, cataract extraction, bilateral cholecystectomy, colon resection, have multiple knee arthroscopic procedures, pacemaker placement. SOCIAL HISTORY: She is . Lives with her . No smoking, drug abuse, or alcohol abuse. She used to smoke long time ago. FAMILY HISTORY: Osteoarthritis. HOME MEDICATIONS: Metformin, insulin, Reglan, Xanax. ALLERGIES: CIPRO AND CLINDAMYCIN. REVIEW OF SYSTEMS: The patient is currently confused. LABORATORY DATA: Reviewed. Her cultures are still pending. White count 15.11, hemoglobin 9.2. Sodium 130, potassium 3.9, creatinine 1.40, glucose 557, magnesium 1.1. The patient had a chest x-ray, showed there is no focal pneumonia. She had a KUB, showed air-filled colon measuring up to 7.2 cm. PHYSICAL EXAMINATION: GENERAL: She is currently alert, confused, does not seem to be in acute distress. VITAL SIGNS: Stable. Temperature 105.0 on admission, currently 98.6. Heart rate of 96. HEENT: Normocephalic. Not icteric. NECK: Supple. CHEST: A few crackles. COR: S1 and S2. No S3, S4, or murmur. ABDOMEN: Soft, distended. EXTREMITIES: No edema. SKIN: No rash. IMPRESSION: Sepsis, on admission. Source could be aspiration pneumonia, could be colitis. The patient has been on antibiotic recently. There is a component of dehydration with acute kidney injury. There is also component of elevated glucose. Family do not want any heroic measure discussed hospice care. They do not mind trying some antibiotic and IV fluid. We also talked about feeding tube. The patient did have feeding tube at one point, but it was removed. They are not so sure if they want to do that again. We agree to give her IV antibiotic and IV fluid and then reassess in the morning. We will discuss with the attending. I am going to recommend to put her on cefepime 1 g q.12 and Flagyl 500 IV q.6 to q.8. IV fluid as per Internal Medicine. Recheck CBC. Recheck Chem panel. The family is going to let me know tomorrow if they want to do feeding tube again and there are going to talk with hospice before they make their final decision. I had a very long discussion with her daughter, also with the ER physician earlier and the medical team. MD MARY Bacon/WILFRED /[id number] OSIRIS
[2019-04-01] MEDS ORDERED: MEROPENEM 1GM 100 ML IV SCH (04:00)
[2019-04-01] MEDS: METRONIDAZOLE 500MG/NS 100ML 100 ML IV SCH ×3 (05:10→21:11)
[2019-04-01] MEDS: SODIUM CHLORIDE 0.9% 1000ML 1,000 ML IV SCH ×2 (05:30→20:10)
[2019-04-01] MEDS: CEFEPIME 1GM/NS 0.9% 50 ML 50 ML IV SCH ×2 (06:04→20:10)
[2019-04-01] MEDS: INSULIN REGULAR, HUMAN 100 UNIT/1 ML 3ML VIAL SQ SCH ×4 (07:30→20:14)
--- NOTE | 2019-04-01 14:04 | NUR ---
WOUND CARE CONSULT 73 YO FEMALE HX OF AMS, DEHYDRATION AND DECUBITUS MARILEE 9 PATIENT ON STRICT PUP STATUS AND INTERVENTIONS AND ALTERNATING PRESSURE MATTRESS LABS: WBC- 15.11, HGB- 9.2, GLUCOSE - 557 SKIN ASSESSMENT COMPLETE PATIENT HEALTH STATUS CONTINUES TO DETERIORATE SKIN CONTINUES TO BECOME THIN AND MORE POTIENTIAL FOR BREAKDOWN AND SLOW WOUND HEALING PATIENT HAS UNSTAGEABLE ULCERATION TO LEFT OUTER ANKLE MEASURES 1CM X1CM X YELLOW SLOUGH INTACT SCABS TO RIGHT AND LEFT LOWER LEG NOTED PATIENT HAS DTI AREA TO MID SACROGLUTEAL 8CM X8CM DARK BRUISING AND 80% SLOUGH AND 20% DULL GRANULATION NOTED RECOMMENDATIONS: NURSING TO CONTINUE TO MAINTAIN STRICT PUP STATUS AND INTERVENTIONS AND ALTERNATING PRESSURE SURFACE NURSING TO CONTINUE TO ASSIST PATIENT OUT OF BED FOR MEALS AND MUCH TOLERATED NURSING TO CONTINUE TO INSURE PATIENT IS RECIEVING NUTRITIONAL SUPPORT TO PROMOTE SKIN HEALTH AND APPROPRIATE WOUND HEALING NURSING TO CLEAN SACROGLUTEAL DTI DAILY WITH NS AND APPLY VENELEX OINTMENT COVER WITH ALLEVYN FOAM DRESSING Addendum: 04/01/19 at 1419 by Michael Conrad RN Amended: Links added.
--- NOTE | 2019-04-01 14:22 | NUR ---
Nutrition Intervention Note RD Recommendation(s) for Physician: - When feasible recommend STUCCO APPLICATOR evaluation for po diet safety, if/when able to advance diet recommend 1600 ADA restriction. - If feasible recommend Glucerna Shake BID for adequacy when diet advanced. - Recommend MVI with minerals once daily for adequacy. - BG and insulin management per MD. - If pt unsafe for po, recommend DHT placement and recommend TF of Glucerna 1.2 with goal rate of 55 ml/hr (to provide 1584 kcal and 79 gm protein). Water flushes and fluid management per MD. Plan of Care: RD following, monitoring for tolerance and adequacy Nutrition reason for involvement: Nutrition Risk Trigger- MST7 RD Assessment 04/01: 73 YOF admitted for AMS, dehydration, seen today per MST screen. Pt with AMS and no family present at time of visit, unable to obtain recent hx. Pt recently hospitalized and on TF via PEG. Per MD notes discussion with family regarding PEG placement again vs hospice. Pt discussed during am rounds. Diet, ONS, and TF rec's provided pending plan and goals of care. Will continue to monitor. Principal Problems/Diagnoses: AMS, dehydration PMH: OA, DM with neuropathy, diverticulitis, gout GI: LBM 04/01 Skin: unstagable PU to sacrum, noted previously a stage III per previous admission in February Labs: 03/31: Na 130, Gluc 557, POC Gluc 262-298 Meds: abx, dilaudid, zofran, insulin IVF: NS at 75 ml/hr Ht: 61 in Wt: 132 lb BMI: 24.9 kg/m2 IBW: 105 lb Malnutrition Evaluation (04/01/19) The patient does not meet criteria for a specified degree of malnutrition at this time. Will re-evaluate at follow-up as appropriate. Unable to assess, pt with AMS and no family at bedside. Energy intake: KIANNA Weight loss: no wt loss per admit last month Fat loss: None, ample skinfold thickness Muscle loss: None, shoulder round Supporting Evidence: Fluid accumulation: none observed Functional Status: not assessed Nutrition Prescription (Diet Order): NPO Estimated Nutritional Needs: 2955-6022 calories/day (25-28 kcal/kg CBW) 60-90 g protein/day (1-1.5 g pro/kg CBW) Diet Adequacy: Not meeting calorie needs, Not meeting protein needs Diet Tolerance: tolerance pending, pt NPO Diet Education Needs Assessment: Diet education not indicated, patient on temporary/transition diet. Nutrition Care Level: Mod Nutrition Diagnosis: Inadequate energy and protein intake related to AMS and current medical conditions as evidenced by poor po intake Goal: Patient will meet 75-100% of estimated needs by follow up Progress: N/A Interventions: - CHO, texture per STUCCO APPLICATOR modified diet, Commercial beverage, Prescription medications, Recommended Modifications, Multivitamin/mineral supplement therapy, Collaboration with other providers Monitoring/Evaluation: -Total energy intake, Total protein intake, Prescription medication, Modified diet, Liquid supplement, Weight change Signed: Radha Minaya RD, LD, CNSC
[2019-04-01] MEDS: ONDANSETRON HCL INJ 2MG/ML 2ML 2 MG/ML VIAL IV PRN (15:50)
[2019-04-01] MEDS: HYDROMORPHONE 1MG/1ML INJ IV PRN (15:50)
--- NOTE | 2019-04-01 15:54 | NUR ---
FAMILY WANTS TO [facility] FOR CONTINUED CARE AND OPTIONS AT [facility]. SIGNED CHOICE FORM TO BE ABLE TO SHARE FACESHEET INFORMATION WITH REP.
--- NOTE | 2019-04-01 18:12 | NUR ---
wound care done by wound team today.
--- NOTE | 2019-04-01 19:15 | NUR ---
patient received awake, alert, lying quietly in bed. no signs of pain noted. ivf continue to infuse without difficulty. patient turned and repositioned for comfort. respirations even and unlabored. pm assessment complete. side rails up x 3. bed alarm remains on for patient safety.
[2019-04-01] MEDS: HYDROMORPHONE 1MG/1ML INJ IV SCH ×2 (20:10→23:00)
[2019-04-02] VITALS (7 sets, daily range): BP systolic 99–147; BP diastolic 51–67
[2019-04-02] MEDS: HYDROMORPHONE 1MG/1ML INJ IV SCH ×9 (02:00→23:30)
[2019-04-02] MEDS: METRONIDAZOLE 500MG/NS 100ML 100 ML IV SCH ×3 (05:05→21:00)
[2019-04-02 06:01] LABS: BASOPHILS # (AUTO) 0.2 (0.0-0.1); BASOPHILS % 0.8 % (0.0-1.0); EOSINOPHILS # (AUTO) 0.2 (0.0-0.4); EOSINOPHILS % 1.1 % (0.0-6.0); HEMATOCRIT 28.2 % (34.2-44.1); HEMOGLOBIN 8.7 g/dL (12.0-16.0); LYMPHOCYTES # (AUTO) 2.9 (1.0-3.2); LYMPHOCYTES % 13.5 % (18.0-39.1); MEAN CORPUSCULAR HEMOGLOBIN 29.8 pg (28-32); MEAN CORPUSCULAR HGB CONC 30.9 g/dL (31-35); MEAN CORPUSCULAR VOLUME 96.6 fL (81-99); MONOCYTES # (AUTO) 1.6 (0.2-0.8); MONOCYTES % 7.5 % (4.4-11.3); NEUTROPHILS # (AUTO) 15.7 (2.1-6.9); NEUTROPHILS % 73.8 % (38.7-80.0); PLATELET COUNT 393 x10e3/uL (140-360); RED BLOOD COUNT 2.92 x10e6/uL (3.6-5.1); RED CELL DISTRIBUTION WIDTH 15.8 % (11.7-14.4)
[2019-04-02] MEDS: CEFEPIME 1GM/NS 0.9% 50 ML 50 ML IV SCH ×2 (06:25→18:06)
[2019-04-02 06:32] LABS: ALBUMIN 1.3 g/dL (3.5-5.0); ALBUMIN/GLOBULIN RATIO 0.3 (0.8-2.0); ANION GAP 12.7 mmol/L (8-16); CALCIUM 8.5 mg/dL (8.4-10.2); CREATININE, SERUM 0.96 mg/dL (0.57-1.11); MAGNESIUM 1.3 MG/DL (1.3-2.1); POTASSIUM 3.7 mmol/L (3.5-5.1)
[2019-04-02] MEDS: INSULIN REGULAR, HUMAN 100 UNIT/1 ML 3ML VIAL SQ SCH ×4 (07:30→20:14)
[2019-04-02 08:07] LABS: LYMPHOCYTES % (MANUAL) 13 % (19-48); MONOCYTES % (MANUAL) 6 % (3.4-9.0); NEUTROPHILS % (MANUAL) 81 % (40-74)
[2019-04-02] MEDS: SODIUM CHLORIDE 0.9% 1000ML 1,000 ML IV SCH ×2 (08:10→20:27)
[2019-04-02] MEDS: BALSAM PERU/CASTOR OIL 60 GM OINT...G. TP SCH (09:00)
--- NOTE | 2019-04-02 20:00 | NUR ---
Received change of shift report from AM nurse. Walking rounds completed.
--- NOTE | 2019-04-02 21:00 | NUR ---
Patient family in room. Son states not to turn patient but ever 4 hours If that much. Vital signs only once per shift. Family refuse routine patient care. Charge nurse informed.
[2019-04-03] VITALS (7 sets, daily range): BP systolic 125–143; BP diastolic 57–66
--- NOTE | 2019-04-03 00:40 | NUR ---
Received change of shift report from SAM oliveira Walking rounds completed. Addendum: 04/03/19 at 0042 by Estrella Stewart RN duplicate
--- NOTE | 2019-04-03 01:42 | NUR ---
Patient resting quitly at this time. No noted distress.
[2019-04-03] MEDS: HYDROMORPHONE 1MG/1ML INJ IV SCH ×2 (02:00→05:00)
[2019-04-03] MEDS: METRONIDAZOLE 500MG/NS 100ML 100 ML IV SCH (05:15)
[2019-04-03 05:21] LABS: BASOPHILS # (AUTO) 0.2 (0.0-0.1); BASOPHILS % 0.9 % (0.0-1.0); EOSINOPHILS # (AUTO) 0.3 (0.0-0.4); EOSINOPHILS % 1.4 % (0.0-6.0); HEMATOCRIT 28.8 % (34.2-44.1); HEMOGLOBIN 8.7 g/dL (12.0-16.0); LYMPHOCYTES # (AUTO) 2.7 (1.0-3.2); LYMPHOCYTES % 14.8 % (18.0-39.1); MEAN CORPUSCULAR HEMOGLOBIN 29.5 pg (28-32); MEAN CORPUSCULAR HGB CONC 30.2 g/dL (31-35); MEAN CORPUSCULAR VOLUME 97.6 fL (81-99); MONOCYTES # (AUTO) 1.5 (0.2-0.8); MONOCYTES % 8.4 % (4.4-11.3); NEUTROPHILS # (AUTO) 13.1 (2.1-6.9); NEUTROPHILS % 71.3 % (38.7-80.0); PLATELET COUNT 400 x10e3/uL (140-360); RED BLOOD COUNT 2.95 x10e6/uL (3.6-5.1); RED CELL DISTRIBUTION WIDTH 15.6 % (11.7-14.4)
[2019-04-03 05:50] LABS: ALANINE AMINOTRANSFERASE 12 IU/L (0-55); ALBUMIN 1.4 g/dL (3.5-5.0); ALBUMIN/GLOBULIN RATIO 0.3 (0.8-2.0); ALKALINE PHOSPHATASE 112 IU/L (40-150); ANION GAP 14.7 mmol/L (8-16); BLOOD UREA NITROGEN 20 mg/dL (7-26); BUN/CREATININE RATIO 22 (6-25); CARBON DIOXIDE 20 mmol/L (22-29); CHLORIDE 112 mmol/L (98-107); CREATININE, SERUM 0.89 mg/dL (0.57-1.11); EST GLOMERULAR FILTRATION RATE > 60 ML/MIN (60-); GLUCOSE 124 mg/dL (74-118); MAGNESIUM 1.3 MG/DL (1.3-2.1); POTASSIUM 3.7 mmol/L (3.5-5.1); SODIUM 143 mmol/L (136-145)
[2019-04-03] MEDS ORDERED: FENTANYL 75MCG/HR PATCH TD SCH (06:00)
[2019-04-03] MEDS: CEFEPIME 1GM/NS 0.9% 50 ML 50 ML IV SCH (06:05)
--- NOTE | 2019-04-03 07:00 | NUR ---
The pt. is in bed more alert this morning. She has a fentanyl patch pending and will be placed once verified by the pharmacy.
[2019-04-03] MEDS: INSULIN REGULAR, HUMAN 100 UNIT/1 ML 3ML VIAL SQ SCH ×4 (07:30→20:15)
[2019-04-03] MEDS: BALSAM PERU/CASTOR OIL 60 GM OINT...G. TP SCH (08:18)
--- NOTE | 2019-04-03 09:41 | NUR ---
WAS NOTIFIED BY MADELEINE ALBERTS THAT EDUCATION WAS COMPLETED WITH FAMILY THEY WILL DISCUSS AND MAKE A DECISION ON SATURDAY. BELIEVE THE PLAN WILL REMAIN TO GO TO [facility]. REP WILL CONTACT ME WHEN PAPERWORK IS SIGNED.
[2019-04-03] MEDS: LORAZEPAM INJ 2 MG/ML VIAL IV PRN (13:28)
[2019-04-03] MEDS: HYDROMORPHONE 2MG/ML 2 MG/ML ML IV SCH ×4 (15:58→23:15)
--- NOTE | 2019-04-03 15:59 | NUR ---
The pt's family declined to have the pt.'s blood glucose done at this time.
--- NOTE | 2019-04-03 19:15 | NUR ---
patient received lying quietly in bed. vss. no signs of pain/discomfort noted. pm assessment complete. bed low and side rails up x 3 for safety.
[2019-04-04] MEDS: HYDROMORPHONE 2MG/ML 2 MG/ML ML IV SCH ×8 (00:40→21:42)
[2019-04-04 07:26] VITALS: BP 119/56
[2019-04-04] MEDS: INSULIN REGULAR, HUMAN 100 UNIT/1 ML 3ML VIAL SQ SCH ×4 (07:30→20:09)
--- NOTE | 2019-04-04 07:30 | NUR ---
PATIENT IN STABLE CONDITION WITH NO S/S OF RESPIRATORY DISTRESS- NO PAIN VOICED. 02 APPLIED AT 3L NC. TELEMETRY APPLIED. BED ALARM APPLIED. ALLEVYN APPLIED TO SACRUM. HEEL PROTECTORS APPLIED. CALL LIGHT IS WITHIN REACH, PATIENT INSTRUCTED TO CALL FOR ASSISTANCE NEEDED
[2019-04-04 07:40] VITALS: BP 119/56
[2019-04-04] MEDS: BALSAM PERU/CASTOR OIL 60 GM OINT...G. TP SCH (11:51)
--- NOTE | 2019-04-04 11:53 | NUR ---
PATIENT'S CHILDREN, POA'S, PRESENT IN THE ROOM- AT THIS TIME THEY DO NOT WANT O2 TO BE APPLIED TO THE PATIENT. 02 SAT REASSESS RESULT 92. POA'S WILL DISCUSS O2 BEING APPLIED TO THE PATIENT AND WILL UPDATE STAFF BUT AT THIS TIME DO NOT APPLY O2.
--- NOTE | 2019-04-04 12:24 | Progress Note ---
DATE: 04/04/2019 SUBJECTIVE: This is a 73-year-old female, who was brought back to the hospital for failure to thrive. The patient has sepsis, pneumonia, possibly aspiration. Has a PEG tube in. The patient is very confused and lethargic and is nonresponsive at this time, can be awakened, but goes right back to sleep. The patient has a palliative care consult currently on the books. PHYSICAL EXAMINATION: VITAL SIGNS: Temperature is 101.4, pulse of 109, respirations of 19, blood pressure is 119/56, and O2 is 3 L. HEENT: Normocephalic, atraumatic. Pupils are reactive to light and accommodation. The patient is lethargic, cachectic, failure to thrive. LUNGS: Decreased air entry. Positive for rhonchi bilaterally. ABDOMEN: Nontender. PEG tube in place. EXTREMITIES: No clubbing. No cyanosis. Positive for edema. LABORATORY VALUES: White count of 18,000, hemoglobin of 8.7, hematocrit 28.8. Chemistries; sodium 143, potassium 3.7, BUN of 20, creatinine 0.89. MICROBIOLOGY: Urine cultures negative. No growth in blood cultures. MEDICATIONS: The patient's medication currently on hydromorphone for pain, cefepime and metronidazole has been restarted. ASSESSMENT: 1. Severe sepsis. 2. Failure to thrive. 3. Aspiration. 4. Dementia. 5. Delirium. 6. Debility. PLAN: Palliative Care is on consult and patient's family decision is unknown at this time. Further recommendation per clinical course. Dr. Kearney is on consult. We will continue with the current medication. Further recommendations per the clinical course. MD NIC CerdaJ/MODL /[id number]
--- NOTE | 2019-04-04 18:57 | NUR ---
PATIENT REMAINS IN STABLE CONDITION WITH NO S/S OF RESPIRATORY DISTRESS- NO PAIN INDICATED (MEDICATION GIVEN RECENTLY FOR COMFORT). TELEMETRY APPLIED. BED ALARM APPLIED. CALL LIGHT IS WITHIN REACH, PATIENT INSTRUCTED TO CALL FOR ASSISTANCE NEEDED. BEDSIDE SHIFT REPORT GIVEN TO ONCOMING NURSE.
--- NOTE | 2019-04-04 19:15 | NUR ---
patient received lying quietly in bed. no signs of pain/discomfort noted. patient remains on comfort care. pm assessment complete. family noted at the bedside. family instructed to call for assistance when needed.
[2019-04-04 19:56] VITALS: BP 135/62
[2019-04-04 20:00] VITALS: BP 135/62
[2019-04-05] MEDS: HYDROMORPHONE 2MG/ML 2 MG/ML ML IV SCH ×6 (00:40→18:01)
--- NOTE | 2019-04-05 07:05 | NUR ---
PATIENT IS IN STABLE CONDITION WITH NO S/S OF RESPIRATORY DISTRESS. NO PAIN INDICATED. TELEMETRY APPLIED. ALLEVYN APPLIED TO SACRAL AREA WELL BILATERAL FEET/HEELS. BED ALARM APPLIED. CALL LIGHT IS WITHIN REACH OF PATIENT- PATIENT INSTRUCTED TO CALL FOR ASSISTANCE NEEDED.
[2019-04-05 07:23] VITALS: BP 131/63
[2019-04-05 07:44] VITALS: BP 131/63
[2019-04-05] MEDS: BALSAM PERU/CASTOR OIL 60 GM OINT...G. TP SCH (08:00)
--- NOTE | 2019-04-05 09:38 | NUR ---
Spoke with Ryan ([phone]) rep w/ [facility]. He is going to [facility] to confirm they can accept pt for hospice, and plans for dc today. He will call and update CM. Family still needs to sign Out of Hosp DNR. CM updated pt nurse, Claudine ZENG. No DC order at this time.
--- NOTE | 2019-04-05 10:32 | NUR ---
Ryan with [facility] came by with Out of Hosp DNR. He gave copy to family, and placed one on front of chart. He stated he is awaiting the arrival of pt hospice meds to [facility] at [facility]. Once arrived, he will notify CM that all is ready and in place for acceptance. Claudine ZENG will be notified and will call Dr. King for DC order. Ryan ([phone]) stated he will arrange for pt transfer to [facility].
--- NOTE | 2019-04-05 13:06 | NUR ---
UPDATE FROM MADELEINE Schuler/ [facility]. HE IS STILL AWAITING OF COMFORT KIT (HOSPICE MEDICATIONS) TO BE DELIVERED TO [facility]. UPDATE GIVEN TO NURSE, CHERELLE ZENG.
--- NOTE | 2019-04-05 13:19 | Progress Note ---
DATE: 04/05/2019 SUBJECTIVE: A 73-year-old female, who came back to the hospital for acute sepsis, possible aspiration, intractable pain, urinary tract infection, and altered mental status. The patient's family has been counseled on palliative care and the family has agreed for hospice care. The patient will be transported to [facility], where her is and on hospice. Currently, medications include lorazepam as needed for anxiety, hydromorphone for pain control, and Zofran as needed for nausea if occurs. All other medications have been stopped. The patient is currently not verbal, moaning at some point of time. No other pain elicited at this point of time. OBJECTIVE: VITAL SIGNS: Temperature is 98.1, T-max of , pulse of 110, respirations of 20, blood pressure is 131/63, pulse oximetry of 99% on 3 L of nasal cannula. HEENT: Normocephalic and atraumatic. Nasal tube is present. CVS: S1 and S2, tachy. ABDOMEN: Nontender, nondistended. PEG tube in place. EXTREMITIES: No clubbing, no cyanosis, no edema. Positive for some ulceration on the extremities. LABORATORY DATA: None have been done. White count last was 18.30. Chemistries, none have been done. The last creatinine was 0.89. ASSESSMENT: Ms. Yissel Granger is a 73-year-old female with failure to thrive, severe sepsis, aspiration, dementia, delirium, debility. PLAN: Hospice is on board, will be transported to a shelter facility to continue with hospice and palliative care treatments. Further recommendation as hospice. We will continue with Ativan at this time until the patient's discharge from the hospital. Discussed with family, daughter and son by bedside and they are aware of the findings and they are for hospice and palliative care. MD HARSHA Cerda/BRYANTL /[id number]
[2019-04-05] MEDS: LORAZEPAM INJ 2 MG/ML VIAL IV PRN (18:27)
--- NOTE | 2019-04-05 18:29 | NUR ---
PATIENT DISCHARGE/TRANSFER TO [facility] RESORT WITH [facility]. REPORT CALLED EARLIER TO RICKEY ANDERSEN AT 1547; PATIENT TRANSFERRING TO ROOM 118. PATIENT OFF THE UNIT AT 1828 PER STRETCHER WITH 2 PERSON EMS SERVICE AND ACCOMPANIED BY SON. PATIENT IN STABLE CONDITION WITH NO S/S OF RESPIRATORY DISTRESS. DILAUDID MEDICATION GIVEN RECENTLY; IV ATIVAN ADMINISTERED TO PATIENT PRIOR TO TRANSFER. 02 APPLIED AT 3L NC. IV REMOVED WITH TIP INTACT. ALLEVYN APPLIED TO SACRAL AREA AND BILATERAL HEELS/FEET. TRANSFER PACKET AND OUT OF HOSPITAL DNAR GIVEN TO EMS SERVICE. ALL PERSONAL ITEMS TAKEN WITH THE PATIENT 'S SON AND EMS SERVICE.
== END 2019-04-05 18:37 | disposition hospice, inpatient (51) | DRG 871 ==
LOC: ER 11:33 → ERHOLD 12:49 → MED/SURG3 16:23
PROVIDERS: ADMIT Internal Medicine; ATTEND Internal Medicine
DX: A41.9 Sepsis, unspecified organism (principal); G92 Toxic encephalopathy; N39.0 Urinary tract infection, site not specified; E87.1 Hypo-osmolality and hyponatremia; F03.91 Unspecified dementia, unspecified severity, with behavioral disturbance; F05 Delirium due to known physiological condition; N17.9 Acute kidney failure, unspecified; N18.3 Chronic kidney disease, stage 3 (moderate); D64.9 Anemia, unspecified; Z66 Do not resuscitate; L89.520 Pressure ulcer of left ankle, unstageable; M19.90 Unspecified osteoarthritis, unspecified site; M10.9 Gout, unspecified; E11.40 Type 2 diabetes mellitus with diabetic neuropathy, unspecified; J45.909 Unspecified asthma, uncomplicated; R62.7 Adult failure to thrive; Z68.24 Body mass index [BMI] 24.0-24.9, adult; R65.20 Severe sepsis without septic shock; L89.156 Pressure-induced deep tissue damage of sacral region; L89.626 Pressure-induced deep tissue damage of left heel
CPT/HCPCS: 36415; 36600; 71045; 74018; 80053; 81001; 82270; 82550; 82553; 82805; 82948; 83518; 83605; 83690; 83735; 83880; 84484; 85025; 85610; 85730; 87040; 87070; 87086; 87400; 93005; 97139; 99285; J0692; J1170; J1817; J2060; J2405; J3475; J7030